=== PATIENT | male | born 1985 | race African-American/Black ===

== ENCOUNTER 2017-04-03 06:42 | Emergency (ER) | payer OTHER ==
[2017-04-03] MEDS ORDERED: Morphine 4 MG/ML VIAL ONE (08:05)
--- NOTE | 2017-04-03 08:26 | RAD ---
TWO VIEWS OF THE LEFT HIP: DATE: 04/03/17. HISTORY: Left hip pain for 2 days. COMPARISON: 10/31/05. FINDINGS: Again noted is the significant bowing deformity of the left femur with left lateral bowing of the fem ur in similar degree to the prior exam. There is a coarsened trabecular pattern throughout the femur which is also seen on the prior exam. No acute fracture is seen, and no dislocation is appreciated on this exam. No other findings. IMPRESSION: 1. Significant bowing deformity involving the left femur similar to a study in 2006 with coarsened t rabecular pattern. These findings are likely attributable to patient's clinical history of osteogene sis imperfecta. 2. No acute fracture is visualized. POS: ALEXANDER
== END 2017-04-03 08:25 | disposition home or self-care (01) ==
LOC: ERS 06:42
DX: Q78.0 Osteogenesis imperfecta (principal); I10 Essential (primary) hypertension; Z87.891 Personal history of nicotine dependence; Z79.899 Other long term (current) drug therapy
CPT/HCPCS: 96372; J2270

== ENCOUNTER 2019-10-29 09:16 | Outpatient (CLI) | payer OTHER ==
--- NOTE | 2019-10-29 09:54 | RAD ---
XR Hip Lt 2-3 View INDICATION: History of osteogenesis imperfecta COMPARISON: Prior exam dated April 03, 2017 FINDINGS: Bones: There is diffuse osteopenia. There are stable healed fracture deformity involving the anterior left hemipelvis and proximal left femur. There is stable varus bowing abnormality involving the left femur. Hip joint: There is mild osteoarthrosis of left hip. SI joints and symphysis pubis: Radiographically normal. Intrapelvic contents: There are multiple phleboliths within the lower pelvis. Surrounding soft tissues: Radiographically normal. IMPRESSION: 1. Stable deformity of the proximal left femur and stable mild left hip osteoarthrosis. No acute frac ture is evident.
--- NOTE | 2019-10-29 09:55 | RAD ---
XR Hip Rt 2-3 View INDICATION: History of osteogenesis imperfecta COMPARISON: None FINDINGS: Bones: There is diffuse osteopenia. There is healed deformity involving the proximal right femur. No acute fracture is demonstrated. Hip joint: There is mild degenerative changes of the right hip joint. SI joints and symphysis pubis: Radiographically normal. Intrapelvic contents: Numerous phleboliths are seen within the lower pelvis. Surrounding soft tissues: Radiographically normal. IMPRESSION: 1. No acute osseous abnormality.
== END 2019-10-29 09:17 | disposition home or self-care (01) ==
LOC: RAD 09:16
PROVIDERS: ATTEND Specialist
DX: Q78.0 Osteogenesis imperfecta (principal); M25.552 Pain in left hip; M25.551 Pain in right hip; M16.12 Unilateral primary osteoarthritis, left hip; M21.952 Unspecified acquired deformity of left thigh

== ENCOUNTER 2021-10-21 10:34 | Emergency (ER) | payer OTHER ==
[2021-10-21] MEDS ORDERED: Ketorolac Tromethamine 30 MG/ML VIAL ONE (12:58)
[2021-10-21] MEDS ORDERED: Morphine 10 MG/ML VIAL ONE (12:58)
== END 2021-10-21 13:25 | disposition home or self-care (01) ==
LOC: ERS 10:34
DX: M25.552 Pain in left hip (principal); M25.512 Pain in left shoulder; I10 Essential (primary) hypertension; Z87.891 Personal history of nicotine dependence
CPT/HCPCS: 71045; 72170; 96372; J1885; J2270

== ENCOUNTER 2021-11-24 08:46 | Outpatient (CLI) | payer OTHER | END 2021-11-24 08:47 | disposition home or self-care (01) | LOC: BICMRI 08:46 | PROVIDERS: ATTEND Specialist | DX: M25.512 Pain in left shoulder (principal); M25.812 Other specified joint disorders, left shoulder ==